=== PATIENT | male | born 1980 | race Caucasian/White ===

== ENCOUNTER 2024-11-12 02:08 | Emergency (ER) | payer OTHER ==
[2024-11-12 02:13] VITALS: BP 124/83; PULSE 82; RESP 17; TEMP 98.4; BMI 41.0
[2024-11-12] MEDS: ALBUTEROL SO4 2.5/IPRATROPIUM 0.5 INH SOL 3 ML VIAL.NEB. NEB SCH (02:45)
[2024-11-12] MEDS ORDERED: ALBUTEROL SO4 2.5/IPRATROPIUM 0.5 INH SOL 3 ML VIAL.NEB. NEB ONE (03:07)
[2024-11-12] MEDS ORDERED: ALBUTEROL SO4 HFA INHALER IH ONE ×2 (03:43→04:20)
== END 2024-11-12 04:25 | disposition home or self-care (01) ==
LOC: JER 02:08
PROC: 3E0F7GC Introduction of Other Therapeutic Substance into Respiratory Tract, Via Natural or Artificial Opening (ICD-10-PCS; principal; 2024-11-12)
DX: J40 Bronchitis, not specified as acute or chronic (principal); R06.02 Shortness of breath; R05.9 Cough, unspecified
CPT/HCPCS: 71046-TC-FY; 99283-25